=== PATIENT | male | born 1995 | race African-American/Black ===

== ENCOUNTER 2018-06-30 17:18 | Emergency (ER) | payer OTHER ==
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
[2018-06-30 19:15] VITALS: BP 112/75
== END 2018-06-30 18:52 | disposition home or self-care (01) ==
LOC: CED 17:18
DX: S63.502A Unspecified sprain of left wrist, initial encounter (principal); V43.52XA Car driver injured in collision with other type car in traffic accident, initial encounter; Y92.410 Unspecified street and highway as the place of occurrence of the external cause; Y93.9 Activity, unspecified; Y99.9 Unspecified external cause status
CPT/HCPCS: 73110-PO; 73130-PO; L3807